=== PATIENT | female | born 1945 | race Caucasian/White ===

== ENCOUNTER → 2023-07-19 | Outpatient (CLI) | payer SELFPAY, OTHER ==
--- NOTE | 2023-07-19 08:29 | CT_ITS ---
PROCEDURE: CT RIGHT KNEE WITHOUT CONTRAST REASON FOR EXAM: Female, 78 years old. Preoperative planning for the MakoPlasty Robotic knee surgery. Knee pain. TECHNIQUE: Transaxial CT of the hip, knee and ankle were obtained. Coronal and sagittal reconstruction images of the knee were provided. Individualized dose optimization techniques were used for this CT. COMPARISON: None. FINDINGS: Standard protocol for the preoperative planning for the MakoPlasty robotic knee surgery was performed. Osteopenia with right total hip arthroplasty, moderate tricompartmental arthrosis of the knee and moderate arthrosis of the tibiotalar and subtalar joints. CT/Extremity Lower without Contra IMPRESSION: Preoperative MakoPlasty Robotic knee surgical CT evaluation with findings as described above. Electronically Signed: Dipesh Carpenter MD at 10:31 EST ,
== END | disposition home or self-care (01) ==
PROVIDERS: PCP Preventive Medicine Occupational Medicine; Referring Provider Student in an Organized Health Care Education/Training Program; Visit Provider Student in an Organized Health Care Education/Training Program
DX: M17.11 Unilateral primary osteoarthritis, right knee (principal)
CPT/HCPCS: 73700

== ENCOUNTER 2023-08-09 12:39 | Observation (INO) | payer SELFPAY ==
--- NOTE | 2023-07-19 08:32 | EKG12_ITS ---
Test Reason : PREOP Blood Pressure : / mmHG Vent. Rate : 095 BPM Atrial Rate : 095 BPM P-R Int : 180 ms QRS Dur : 128 ms QT Int : 394 ms P-R-T Axes : 028 080 004 degrees QTc Int : 495 ms Normal sinus rhythm Non-specific intra-ventricular conduction block Abnormal ECG Confirmed by DEYSI DUPREE, COLLEEN ([id number]), newspaper copy editor RICCARDO ROBISON ([id number]) on 07/20/2023 1:35:28 PM Referred By: Phoenix Patricio Confirmed By:COLLEEN JO MD
[2023-07-19 09:44] LABS: Absolute Lymphocyte Count 2.75 X10^3/uL (0.83-4.51); Basophil# 0.04 X10^3/uL; Basophil% 0.6 % (0-1); Eosinophil# 0.25 X10^3/uL; Eosinophils% 3.8 % (0-5); Hematocrit 42.4 % (37-47); Hemoglobin 14.4 g/dL (12.0-15.0); Lymphocyte # 2.75 X10^3/ul (0.83-4.51); Lymphocyte % 41.8 % (19-41); Mean Corpuscular Hgb 30.6 pg (27.0-32.0); Mean Platelet Vol. 8.8 fl (6.2-12.0); Monocyte# 0.51 X10^3/uL; Monocyte% 7.8 % (0-10); NRBC Flagged by Analyzer 0 % (0-5); Neutrophil # 3.01 X10^3/uL (2.7-7.7); Neutrophil % 45.7 % (47-70); Platelet Count 232 K/mm3 (150-450); RBC Distribution Width CV 13.8 % (11.6-14.6); RBC Distribution Width SD 45.7 fl (35.1-43.9); Red Blood Count 4.71 M/mm3 (4.2-5.4); White Blood Count 6.6 K/mm3 (4.4-11.0)
[2023-07-19 10:02] LABS: Albumin, Serum 3.6 g/dL (3.2-5.0); Anion Gap 7 (5-15); BUN 18 mg/dL (7-18); BUN/Creat Ratio 35.5 RATIO (10-20); Calcium,Total 9.5 mg/dL (8.5-10.1); Chloride 107 mmol/L (98-107); Creatinine, Serum 0.51 mg/dL (0.55-1.02); EST Glomerular Filtration Rate 125 mL/min (>60); Est Glom Filt Rate - Afr Amer 151 mL/min (>60); Glucose 95 mg/dL (74-106); Potassium 4.2 mmol/L (3.5-5.1); Sodium Level 141 mmol/L (136-145)
[2023-07-19 10:08] LABS: Magnesium 2.3 mg/dL (1.6-2.6); Thyroid Stim Hormone (TSH) 2.45 uIU/mL (0.358-3.74)
[2023-08-09] VITALS (16 sets, daily range): BP systolic 129–151; BP diastolic 67–91; PULSE 81–99; RESP 16–18; TEMP 36.3–36.9; O2SAT 94–99; BMI 32.8; BMI 30.7; BMI 30.8
--- OUTSIDE RECORDS SUMMARY | 2023-08-09 05:19 | XMS RPT_ITS | CCD ---
Author Name Unknown Address [address] [place] [address] Organization [facility] Care Team Providers Care Ict Business Analyst Name Role Phone FRANKI MOREL DO Primary Care Physician [phone]) FRANKI MOREL DO Attending Unavailable FRANKI MOREL DO Primary Care Unavailable Allergies Allergy Classification Reported Allergen(s) Allergy Type Date of Onset Reaction(s) Facility (2 sources) Acetaminophen; Translations: [acetaminophen] Drug Allergy UPSET STOMACH [facility] (2 sources) Acetaminophen / HYDROcodone; Translations: [acetaminophen-hy drocodone] Drug Allergy Confusion, Hallucinations [facility] (2 sources) hydroCHLOROthiazi de; Translations: [hydrochlorothiaz jarocho] Drug Allergy 1 Muscle pain (finding) [facility] Medications Current Medications Medication Drug Class(es) Dates Sig (Normalized) Sig (Original) aspirin 81 mg delayed release oral tablet (2 sources) Platelet Aggregation Inhibitor, Nonsteroidal Anti-inflammatory Drug Start: 07-02-2018 aspirin 81 mg oral delayed release tablet Dose : 81 mg = 1 tab(s), Oral, Daily, PRN NEEDED, 0 Refill(s) Start Date: 07/02/18 Status: Ordered Bromelain 500 mg tablet (3 sources) Start: 08-29-2022 Bromelain 500 mg tablet 1, Daily, 0 Refill(s) Start Date: 08/29/22 Status: Ordered Problems Problem Classification Problem Date Documented Da te Episodic/Chronic Acquired foot deformities (2 sources) Hammer toe 07-02-2018 Chronic Essential hypertension (3 sources) Hypertensive disorder; Translations: [Essential hypertension] 07-02-2018 Chronic Menopausal disorders (2 sources) Menopausal symptom 01-12-2020 Chronic Osteoarthritis (2 sources) Osteoarthritis 09-16-2012 Chronic Residual codes; unclassified (2 sources) Edema of foot 01-12-2020 Episodic Thyroid disorders (3 sources) Hypothyroidism; Translations: [Hypothyroidism, unspecified] 01-12-2020 Chronic Results Test Name Value Interpretation Reference Range Facil ity Encounters Encounter Date Encounter Type Care Provider Facility Start: 03-06-2023 End: 03-07-2023 ambulatory FRANKI MOREL DO Facility:B Start: 03-06-2023 End: 03-06-2023 Patient encounter procedure FRANKI MOREL DO [facility] Start: 02-14-2022 End: 02-14-2022 Patient encounter procedure FRANKI MOREL DO [facility] Procedures Date Procedure Procedure Detail Performing Clinician Start: 07-30-2012 Total knee replacement FRANKI MOREL DO Payers Date Payer Category Payer Self-pay 1945 Unknown [id number] Social History Date Type Detail Facility Start: 03-11-2019 Tobacco smoking status Never s moked tobacco (finding) [facility] Sex Assigned At Female [facility] Evaluation + Plan note Note Date & Type Note Facility Evaluation + Plan note Future Appointments Appointment Date:08/17/2022 08:45:00 AM Scheduled Provider:FARNKI MOREL DO Location:[facility] Appointment Type:PC OV [facility] Evaluation + Plan note Laboratory Note Date & Type Note Facility Evaluation + Plan note Future Appointments Appointment Date:08/21/2023 08:30:00 AM Scheduled Provider:FRANKI MOREL DO Location:[facility] Appointment Type:PC OV Follow Up Future Scheduled TestsAlbumin/Creatinine Ratio, Random Urine 02/20/23 [facility] Hospital course Narrative Note Date & Type Note Facility Hospital course Narrative No data available for this section [facility] Hospital Discharge instructions Note Date & Type Note Facility Hospital Discharge instructions No data available for this section [facility] Progress note Note Date & Type Note Facility Progress note No data available for this section [facility] Summary Purpose Family History No Family History Records Found Advance Directives No Advanced Directives Records Found Additional Source Comments Care Team (unrecognized sect ion and content) Care Team Personnel Name: FRANKI MOREL DO Position: P4 Physician - Primary Care Med Service: Active Provider Member Role: Primary Care Physician Address: Address: [address] [place] [address] Care Team Related Persons Name: MILO MCGHEE Name: CASSANDRA KAUR Patient Care team informatio n (unrecognized section and content) Care Team Personnel Name: FRANKI MOREL DO Position: P4 Physician - Primary Care Member Role: Primary Care Physician Address: Address: [address] [place] [address] Care Team Related Persons Name: MILO MCGHEE Name: CASSANDRA KAUR INFORMATION SOURCE (unrecogn ized section and content) FOR RECORDS PERTAINING TO PATIENTS WHO ARE OR HAVE BEEN ENROLLED IN A CHEMICAL DEPENDENCY/SUBSTANCEABUSE PROGRAM, SOME INFORMATION MAY BE OMITTED. This clinical summary was aggregated from multiple sources. Caution should be exercised in using it in the provision of clinical care. This summary normalizes information from multiple sources, and as a consequence, information in this document may materially change the coding, format and clinical context of patient data. In addition, data may be omitted in some cases. CLINICAL DECISIONS SHOULD BE BASED ON THE PRIMARY CLINICAL RECORDS. [facility] [employer] [facility]. provides no warranty or guarantee of the accuracy or completeness of information in this document.
[2023-08-09] MEDS: Celecoxib 200 MG Capsule 400 MG PO (06:12)
[2023-08-09] MEDS: Acetaminophen 500 MG Tablet 1000 MG PO ×2 (06:13→22:29)
[2023-08-09] MEDS: Gabapentin 600 MG Tablet PO (06:13)
[2023-08-09 06:17] LABS: Bedside Glucose 100 mg/dL (74-106)
[2023-08-09] MEDS: Lactated Ringers 1,000 ML 75 ML IV (06:22)
[2023-08-09] MEDS: Lactated Ringers 1,000 ML 999 ML IV ×2 (06:22→09:56)
[2023-08-09] MEDS: Magnesium 1 GM over 15 mins IV (06:23)
--- NOTE | 2023-08-09 07:30 | KNEE_PTH ---
PATHOLOGY RESULTS PATIENT: ZOYA KAUR LOC: MS3 U#:[id number] AGE/SX: 78/F ROOM: MS316 RE08/09/[address]: Dr. Phoenix Patricio DO : 1945 BED: 1 DIS: 08/10/2023 SPEC #: [id number] RECD: 08/09/23 10:45 STATUS: MELISSA ARNOLD #: [id number] OSKAR: 08/09/23 07:[address]: Phoenix Patricio DEPT: SURGICAL PATHOLOGY RECD BY: Carleen Aleman ENTERED: 08/09/23 10:45 SP TYPE: TOTAL KNEE OTHR DR: Dr. Braeden Haynes DO Tissues: Knee, NOS Procedures: Decalcification bone/plaque Surgery Specimen Level IV HEADER OPERATION: SUSAN, robotic assisted right total knee arthroplasty PRE-OP DIAGNOSIS: Grade IV osteoarthritis right knee, arthritis TISSUE SUBMITTED: Right knee bone and tissue MICROSCOPIC DIAGNOSIS Bone and tissue of right knee, total knee resection: Severe degenerative joint disease. Mild synovial hyperplasia. AM:geovany 08/13/2023 MICROSCOPIC DESCRIPTION Slides are reviewed. GROSS DESCRIPTION Received is one container designated bone and soft tissue right knee. The specimen consists of multiple fragments of kerns-yellow bone measuring in aggregate 9.0 x 9.0 x 3.0 cm. No soft tissue is identified. A number of bony fragments contain articular surfaces consistent with tibial plateau and femoral condyle and displaying prominent osteophyte formation, eburnation and bone erosion. Waiter/Waitress Take Out sections are submitted in one cassette after decalcification. / JUAN:geovany 08/09/2023 TC:5 CPT: 37161, 81919
[2023-08-09] MEDS: Cefazolin 2 GM in 0.9% Normal Saline (100mL Bag) 100 ML IV (07:35)
[2023-08-09] MEDS: TXA 1000mg in NS100 100ml (IVPB at Closure) 660 MG IV (07:55)
[2023-08-09] MEDS: dexAMETHasone 10 MG/ML Vial IV (07:55)
[2023-08-09] MEDS: TXA 1000mg in NS100 100ml (IVPB at Incision) 660 MG IV (09:19)
[2023-08-09] MEDS: JPS (Morphine 10mg/ml) OPERA.SITE (09:22)
--- NOTE | 2023-08-09 10:36 | OP.PCM_ITS ---
Report of Operation Date of Procedure: 08/09/23 Description of Surgical Findings:: Preoperative diagnosis: Right knee primary osteoarthritis Postoperative diagnosis: Right knee primary osteoarthritis Procedure: Cemented right total knee arthroplasty Surgeon: Phoenix Patricio DO Pot Feeder: Rupinder Mensah PA-C Anesthesia: General Anesthesiologist: Dr. Hickey Complications: None apparent Drains: None Estimated blood loss: 100 cc Urinary output: None recorded IV fluids: 1500 cc crystalloid Specimens: Total knee resections Surgical implants: [place] triathlon X3 asymmetric patella size a32, triathlon cruciate retaining femoral #3, primary tibial baseplate #4, triathlon X3 tibial bearing insert CS 11 mm thickness Indications: This is a 78-year-old female seen in the outpatient setting diagnosed with right knee osteoarthritis. She failed nonoperative management with intra-articular corticosteroid injections, activity modification, bracing, cfva-[id number] analgesics. X-rays revealed grade 4 changes. She also had significant patellofemoral arthritis. I recommended a right total knee arthroplasty. The risks, benefits, alternatives to procedure reviewed with patient at length and he agreed to proceed. Risks included but were not limited to bleeding, infection, loss of life or limb, need for additional surgery, persistent pain, intraoperative or postoperative fracture, instability, loosening of components, wound complications, stiffness, neurovascular injury, DVT or PE. Patient expressed understanding these risks and wished to proceed with surgery. Informed consent was obtained in the outpatient setting. Description of procedure: Patient was identified in the preoperative holding area by name, medical record number, and date of . Informed consent was confirmed with the patient. The operative knee was marked with a surgical marker. At time of her procedure, patient brought to the operative suite and positioned supine a standard operating table. Anesthesia then attempted to administer a spinal anesthetic. This was unsuccessful. Decision was made to c onvert the patient to a general anesthesia. General anesthesia was induced and endotracheal tube was placed. All bony prominences were well-padded. We then placed a well-padded pneumatic tourniquet on the right upper thigh. The right upper extremity was brought across patient's chest throughout the procedure. We then prepped and draped the left lower extremity in a normal, sterile orthopedic fashion. We performed a timeout with all parties in attendance in agreement with the side, site, operation be performed. No concerns were voiced and would like to proceed with surgery. 2 g Ancef was administered prior to the incision by anesthesia staff as well as 1 g IV TXA. Firs I t exsanguinated the left lower extremity with a Esmarch bandage. Tourniquet was inflated to 280 mmHg which remained up for approximately 65 minutes. Esmarch was removed. I planned a standard midline approach to the right knee approximately 15 cm in length. Skin was sharply incised with a 10 blade scalpel developing full-thickness layers down to the retinaculum. Layers were developed identifying the VMO. I then planned a standard medial parapatellar arthrotomy performed in flexion. The anterior horn of the medial meniscus was released. Hoffa's fat pad was then released. I then everted the patella in extension and brought the knee into 90 degrees of flexion. The anterior horn of the lateral meniscus was then released. The ACL was split in its mid substance with a 10 blade. We then brought the knee back into extension. Appropriately sized patellar reamer was selected. I measured the thickness of the patella to be 24 mm. I then reamed the patella to a depth of approximately 15 mm. A protective baseplate was then placed on the patella. I then placed pins in the metaphyseal distal femur medial to lateral for the John arrays. In similar fashion, I made a 2 cm incision approximately a handsbreadth distal to the tibial tubercle along the medial aspect of the tibia, drilling 2 bicortical pins for the tibial array. The knee was brought into flexion. The patella was subluxed laterally but not everted. Medial lateral retractors were placed. We then utilized the [employer] software to confirm our planned surgical procedure and oriented with the patient's osseous anatomy. All checks with the John system were confirmed. We elected to place the tibial baseplate in approximately 2 degrees of valgus to allow for appropriate balancing. Sawblade was then brought in. I first started with the tibial cut, ensuring protection of the MCL and patellar tendon. A tibial wafer was then excised. I then proceeded to make the posterior femoral, anterior, anterior chamfer cuts with the same blade. Ligaments were protected with [employer] retractors. Sawblade was then exchanged to perform the distal femoral and posterior chamfer cuts. The robot was then removed from the surgical field. Remaining loose bone and meniscus was excised carefully. Posterior osteophytes were removed from the distal femur with a curved osteotome and rongeur. Trial components were then placed. Balance was excellent in both extension and 90 degrees flexion. No mid flexion instability was apparent. I then drilled for a size 32 patella. Patella was trialed. Tracking was excellent. We then marked for tibial baseplate. Distal femoral pegs were drilled. Tibial keel was punched. Trials were removed. Periarticular block was administered. The wound was copiously irrigated with normal saline solution. Simplex cement was then mixed on the back table. Components were then cemented in place with excess cement being removed. Cement was allowed to cure with the components in full extension utilizing an 11 mm trial polyethylene component. While the cement was curing, Betadine solution was irrigated into the wound and the wound edges. After cement had cured fully, trial polyethylene was removed. Tourniquet was deflated. Hemostasis was excellent. An additional 1 g TXA was administered IV. I selected a size 11 mm polyethylene which was placed and impacted per metal buffer recommendations. Final components appeared very well balanced with excellent range of motion. There is no significant remaining flexion contracture. The wound was copiously irrigated with normal saline solution. Capsule was closed watertight with #1 strata fix barbed suture. Deeper report bursal layer was reapproximated with 0 Vicryl suture. Dermis was reapproximated buried interrupted 2-0 Vicryl suture. Skin was finally reapproximated papa. Patient tolerated the procedure well without apparent complication. She was safely awakened and extubated in the operative suite, transferred to her hospital bed and subsequently to PACU in stable condition. Need for skilled office administrative assistant: Rupinder Mensah PA-C was critical to the outcome of the case. During the course of the procedure the physician office administrative assistant played a vital role. Her intimate knowledge of my steps in the procedure aided in safe and expedient completion of the procedure. The PA played a vital role in positioning particularly in obtaining the appropriate positioning. The PA was also vital in the retraction of soft tissues during the exposure and projecting vital structures. The PA was also vital and protecting soft tissues during times of bony cuts. She also played a vital role in closure with my direct supervision. The PA was also important during reduction and dislocation of the joint and trials intraoperatively. Post Operative Plan: Patient will be placed in observation overnight. Weightbearing: Range of motion and weightbearing as tolerated right lower extremity. Antibiotics: Ancef 2 g every 8 hours x 3 doses DVT Prophylaxis: Aspirin 81 mg twice daily for DVT prophylaxis beginning postoperative day #1 Ramos: None Dressing: Maintain silver dressing x7 days X-Rays: 2-week x-rays in the office. Follow-up: 2 weeks in my office for staple removal
[2023-08-09] MEDS: Lactated Ringers 1,000 ML 125 ML IV ×2 (11:12→19:56)
[2023-08-09] MEDS: Cefazolin 1 GM/50 ML BAG IV ×2 (13:49→22:28)
[2023-08-09] MEDS: oxyCODONE 5 MG Tablet PO (19:35)
[2023-08-09] MEDS: Senna/Docusate Sodium 1 Tablet 2 TABLET PO (22:30)
[2023-08-09] MEDS: Lisinopril 40 MG Tablet PO (22:30)
[2023-08-10] VITALS: BMI 30.8
[2023-08-10 01:00] VITALS: BP 122/75; PULSE 90; RESP 16; TEMP 36.6; O2SAT 97
[2023-08-10 05:27] LABS: Hematocrit 33.8 % (37-47); Hemoglobin 11.5 g/dL (12.0-15.0); Mean Corpuscular Hgb 30.2 pg (27.0-32.0); Mean Corpuscular Volume 88.7 fL (81-99); Mean Platelet Vol. 8.7 fl (6.2-12.0); Platelet Count 206 K/mm3 (150-450); RBC Distribution Width CV 13.3 % (11.6-14.6); RBC Distribution Width SD 43.5 fl (35.1-43.9); Red Blood Count 3.81 M/mm3 (4.2-5.4); White Blood Count 10.8 K/mm3 (4.4-11.0)
[2023-08-10 05:52] LABS: Anion Gap 5 (5-15); BUN 16 mg/dL (7-18); BUN/Creat Ratio 30.7 RATIO (10-20); Calcium,Total 8.1 mg/dL (8.5-10.1); Chloride 106 mmol/L (98-107); Creatinine, Serum 0.52 mg/dL (0.55-1.02); EST Glomerular Filtration Rate 121 mL/min (>60); Est Glom Filt Rate - Afr Amer 147 mL/min (>60); Glucose 113 mg/dL (74-106); Potassium 3.4 mmol/L (3.5-5.1); Sodium Level 139 mmol/L (136-145)
[2023-08-10] MEDS: Acetaminophen 500 MG Tablet 1000 MG PO (06:08)
[2023-08-10] MEDS: oxyCODONE 5 MG Tablet PO ×2 (06:08→11:08)
[2023-08-10] MEDS: Levothyroxine 100 MCG Tablet PO (06:08)
[2023-08-10 06:10] VITALS: BMI 30.8
[2023-08-10 06:19] VITALS: BP 124/70; PULSE 82; RESP 16; TEMP 36.6; O2SAT 98
[2023-08-10 09:51] VITALS: O2SAT 98
--- NOTE | 2023-08-10 10:20 | CASEMGMT ---
Addendum entered by Heather Weber 08/10/23 11:13: [facility] ([facility] calls and states they can accept the pt and the SOC is Sunday. Leigh Ann states that the [facility] liaison is going to come talk to the pt about pricing. Original Note: ANUSHKA WILDER Assessment Face to Face with patient for initial transition planning/care coordination assessment. ANUSHKA WILDER introduced self and role at [facility], pt voices understanding. Pt is A&Ox4 and is resting comfortably in bed and is calm. Pt at bedside. Care providers, pharmacy, and demographics verified. Admitting dx: Rt Total Knee LACE Strata: 1 PCP: [facility] Specialists: Denies Preferred Pharmacy: [facility] Insurance: [facility] Package Plan Prescription Benefit: Denies LNOK: Daughter - Charmaine Weber Living Arrangements: Pt states she lives with her , daughter, son, and sister in a 3 story home with a basement. Pt states there are 3 steps to enter the home. Pt states there are handrails to the down and upstairs but does not plan to use them right away after surgery. Pt states she has enough help at home to reside on one floor for the time being. ADLs/IADLs: States she is normally independent with ADLs and IADLs. States her daughter and will help her with chores at home during her recovery. Transportation: Hire Drivers DME: States they have a cane and walker at home but only uses the cane at this time. Pt states when she gets home she will use the walker more. Denies home O2 use. HHC/SNF: Denies SNF. States Hx of HHC x10 years ago from a total Lt knee. Pt could not remember the company. Pt states that she has an outpt appt setup through [email or web address]. Pt requests this to be canceled and is requesting HHC. Pt states that she wants [facility] HHC and denies seeing a list of options. This ANUSHKA WILDER called [facility] and left a message. [facility] called and appt canceled. Pt?s goal: DC Home today with her family via a hired bus driver supervisor Plan: Set up HHC through [facility]. Pt states that she wishes SOC to be on Sunday. Awaiting call back. Jacquie Weber RN, CM
[2023-08-10 10:23] VITALS: BP 120/78; PULSE 78; RESP 16; TEMP 36.7; O2SAT 96; BMI 30.8
--- NOTE | 2023-08-10 13:02 | DCINST_ITS ---
Discharge Instructions Follow Up Care Test Results: Test results from this visit will be discussed in further detail at your follow- up appointment, if applicable. Discharge Plan Admission Admit Date/Time: 08/09/23 12:39 Attending Provider: Phoenix Patricio Primary Care Provider: Braeden Haynes Instructions Additional Instructions / Restrictions: Follow preprinted instructions from your surgeons office Discharge Orders/Prescriptions Prescriptions: New sennosides-docusate sodium [Stool Softener-Stimulant Laxat] 8.6-50 mg Tablet 2 tab PO BID 14 Days Qty: 56 0RF acetaminophen 500 mg Tablet 1,000 mg PO Q8 30 Days Qty: 180 0RF meloxicam 7.5 mg Tablet 7.5 mg PO BIDCM 30 Days Qty: 60 0RF aspirin 81 mg Tablet,Chewable 81 mg PO BIDCM 28 Days Qty: 56 0RF oxycodone 5 mg Tablet 5 - 10 mg PO Q4H PRN PRN (Reason: Pain Score 4-10) 7 Days Qty: 42 0RF doxycycline hyclate 100 mg tablet 100 mg PO BID 7 Days Qty: 14 0RF Continued lisinopril 40 mg tablet 40 mg PO QHS Patient Comments: TAKE 1 TABLET BY MOUTH EVERY DAY levothyroxine 100 mcg tablet 100 mcg PO DAILY Patient Comments: TAKE 1 TABLET BY MOUTH EVERY DAY TAKE ON AN EMPTY STOMACH furosemide 40 mg tablet 40 mg PO PRN PRN (Reason: edema) Patient Comments: TAKE 1 TABLET BY MOUTH EVERY DAY NEEDED FOR SWELLING yucca 500 mg capsule 500 cap PO DAILY vitamin E 200 unit capsule 200 unit PO DAILY cyanocobalamin-liver extract Tablet 1 tab PO DAILY C Complex 1,000 mg tablet extended release 1,000 mg PO DAILY Magnesium Complex 300 mg magnesium tablet 500 mg PO QHS PHYTOMEGA 1 tab PO DAILY biotin 1,000 mcg tablet,chewable 1,000 mcg PO DAILY Referrals / Follow Up: Phoenix Patricio DO [Med Staff - Active Staff] - Disposition Disposition (needs filled in before D/C Order can be placed): Home, Self Care
--- NOTE | 2023-08-10 13:02 | PCM.PN.ORT ---
Subjective Subjective Patient seen and examined. Pain is controlled with current pain regimen. Denies fevers, chills, nausea vomiting, chest pain or shortness of breath. Up with therapy. Anxious for discharge to home. Objective Data Objective Data Vital Signs: Vital Signs Temp Pulse Resp BP Pulse Ox O2 Del Method O2 Flow Rate 98.0 F 78 16 120/78 96 Room Air 4 08/10/23 10:23 08/10/23 10:23 08/10/23 10:23 08/10/23 10:23 08/10/23 10:23 08/10/23 10:08/09/23 10:30 Oxygen Flow Rate (L/min) 4 Oxygen Delivery Method Room Air Weight: 184 lb 15.485 oz Body Mass Index (BMI) 30.7 Intake & Output: Intake and Output for Last 24 Hours 08/08/23 08/09/23 08/10/23 23:59 23:59 23:59 Intake Total 4532 / 5257 1835.42 / 1835.42 Balance 4532 / 5257 1835.42 / 1835.42 Lab / Micro Data 08/10/23 05:14 08/10/23 05:14 Labs: Laboratory Results - last 24 hr 08/10/23 05:14: WBC 10.8, RBC 3.81 L, Hgb 11.5 L, Hct 33.8 L, MCV 88.7, MCH 30.2, MCHC 34.0, RDW Std Deviation 43.5, RDW Coeff of Meagan 13.3, Plt Count 206, MPV 8.7, Sodium 139, Potassium 3.4 L, Chloride 106, Carbon Dioxide 28.0, Anion Gap 5, BUN 16, Creatinine 0.52 L, Estim Creat Clear Calc 63.00, Est GFR (MDRD) Af Amer 147, Est GFR (MDRD) Non-Af 121, BUN/Creatinine Ratio 30.7 H, Glucose 113 H, Calcium 8.1 L Micro: Microbiology 07/19/23 08:58 Swab (Method) Nasal Screen MRSA/MSSA - Final Physical Exam Narrative General - A&Ox3, NAD. VSS/AF right lower extremity -incisional dressing C/D/I. SILT Sural, Saphenous, SPN, DPN, Tibial N. distributions. DP, PT 2+. BCR. DF, PF, EHL 5/5. No calf TTP. Assessment & Plan Assessment/Plan (1) Post-op pain: PLAN: POD# 1 s/p right total knee arthroplasty robotic arm assist - Pain control - PT/OT - DVT PPX -Multimodal with aspirin 81 mg twice daily, SCDs, DONNY wagner, early mobilization - Case management - D/C planning Plan for discharge home today with home health care physical therapy. 7 days postoperative antibiotic prophylaxis. Doxycycline sent to pharmacy today. Follow-up in 2 weeks for staple removal and range of motion assessment.
== END 2023-08-10 13:21 | disposition home or self-care (01) ==
LOC: SDC 12:58 → MS3 12:58
PROVIDERS: Anesthesiology; Admitting Provider Student in an Organized Health Care Education/Training Program; PCP Preventive Medicine Occupational Medicine; Referring Provider Student in an Organized Health Care Education/Training Program; Visit Provider Student in an Organized Health Care Education/Training Program
PROC: 0SRC0JZ Replacement of Right Knee Joint with Synthetic Substitute, Open Approach (ICD-10-PCS; CPT 27447; principal; 2023-08-09 07:00)
DX: M17.11 Unilateral primary osteoarthritis, right knee (principal); E07.9 Disorder of thyroid, unspecified; I10 Essential (primary) hypertension; Z79.899 Other long term (current) drug therapy; Z79.890 Hormone replacement therapy; M41.9 Scoliosis, unspecified
CPT/HCPCS: 27447; 01402; 64447; S2900; 36415; 80048; 82040; 82962; 83036; 83735; 84443; 85025; 85027; 87081; 88305; 88311; 93005; 94668; 96361; 96365; 96366; 97110; 97116; 97162; 97166; 99221; 99252; C1776; J7120; G0378; G0463; J2405; J3475

== ENCOUNTER → 2025-07-21 | Outpatient (CLI) | payer SELFPAY ==
--- NOTE | 2025-07-20 13:10 | MASS_PTH ---
PATIENT: ZOYA KAUR LOC: [facility]I U#:[id number] AGE/SX: 80/F ROOM: RE07/21/[address]: Dr. Gordon Morales MD : 1945 BED: DIS: 07/21/2025 SPEC #: [id number] RECD: 07/21/25 14:58 STATUS: MELISSA REAlonso #: [id number] OSKAR: 07/20/25 13:[address]: Gordon Morales DEPT: SURGICAL PATHOLOGY RECD BY: Yoel Skaggs ENTERED: 07/22/25 10:42 SP TYPE: Mass OTHR DR: Dr. Braeden Haynes, Tissues: A - Neck, NOS Procedures: Surgery Specimen Level III HEADER OPERATION: Right excision, neck mass PRE-OP DIAGNOSIS: Sebaceous cyst TISSUE SUBMITTED: A. Sebaceous cyst MICROSCOPIC DIAGNOSIS A. Right neck, mass/cyst, excision: - Epidermal inclusion cyst. MICROSCOPIC DESCRIPTION Slides are reviewed. GROSS DESCRIPTION A. Received in formalin labeled with the patient's name and date of . Designated as right neck mass is a 2.5 x 1.9 x 1.4 cm kerns-white, intact and glistening cyst focally surfaced by a 1.8 x 0.8 cm kenrs skin ellipse with blue surgical markings along the periphery. Sectioning reveals kerns-yellow, sebaceous like cyst contents. A passenger service representative section is submitted in 1 cassette. MA 07/22/2025 CPT:04843
== END | disposition home or self-care (01) ==
LOC: LABSPEC 15:47
PROVIDERS: PCP Preventive Medicine Occupational Medicine; Referring Provider Otolaryngology; Visit Provider Otolaryngology
DX: L72.0 Epidermal cyst (principal)
CPT/HCPCS: 88304